=== PATIENT | female | born 1965 | race Caucasian/White ===

== ENCOUNTER 2018-10-14 11:00 | Emergency (ER) | payer MEDICAID ==
[~2018-10-14] VITALS: Ht 167.6 cm; Wt 72.7 kg
[2018-10-14] MEDS ORDERED: ibuprofen tablet 400 MG TABLET PO ONE (11:50)
[2018-10-14] MEDS ORDERED: BUPIVAcaine 0.5% W/EPI /PF 30ml vial IJ STA (11:59)
[2018-10-14] MEDS ORDERED: IBUP-1985 PO (12:18)
[2018-10-14] MEDS ORDERED: AMOX-580 PO (12:18)
[2018-10-14 12:49] VITALS: BP 155/85
== END 2018-10-14 12:30 | disposition home or self-care (01) ==
LOC: ER 11:01
DX: K02.9 Dental caries, unspecified (principal); G89.29 Other chronic pain; F12.90 Cannabis use, unspecified, uncomplicated; Z79.2 Long term (current) use of antibiotics; Z79.899 Other long term (current) drug therapy; Z98.51 Tubal ligation status; Z98.890 Other specified postprocedural states; Z87.442 Personal history of urinary calculi; Z59.0 Homelessness
CPT/HCPCS: 99283

== ENCOUNTER 2018-10-16 19:11 | Emergency (ER) | payer MEDICAID ==
[~2018-10-16] VITALS: Ht 167.6 cm; Wt 68.8 kg
[~2018-10-16 19:11] MED LIST: AMOX-580 PO; IBUP-1985 PO
[2018-10-16 19:16] VITALS: BP 158/82
--- NOTE | 2018-10-16 19:56 | NUR ---
PATIENT WAS ABLE TO CONTACT DOG'S SEED ANALYST AND VERIFIED DOG IS UP TO DATE WITH VACCINATIONS INCLUDING RABIES.
[2018-10-16] MEDS ORDERED: TETanus/Pertussis (Acell)/Diphther VAC/PF (Tdap-Adult) 0.5ml syringe IM ONE (20:40)
[2018-10-16] MEDS ORDERED: LORazepam 0.5 MG tablet PO STA (20:40)
[2018-10-16] MEDS ORDERED: ketorolac tromethamine 15mg/ml inj. IV ONE (20:40)
[2018-10-16] MEDS ORDERED: LIDOcaine 1% w/epiNEPHrine 1:200,000 30ml vial IM ONE (20:45)
[2018-10-16] MEDS ORDERED: ACET-2119 PO (22:49)
[2018-10-16] MEDS ORDERED: IBUP-1985 PO (22:49)
[2018-10-16] MEDS ORDERED: AMOX-580 PO (22:49)
[2018-10-16] MEDS ORDERED: HYDR-3965 PO (22:50)
== END 2018-10-16 23:46 | disposition home or self-care (01) ==
LOC: ER 19:12
DX: S71.112A Laceration without foreign body, left thigh, initial encounter (principal); S01.311A Laceration without foreign body of right ear, initial encounter; S61.512A Laceration without foreign body of left wrist, initial encounter; S01.412A Laceration without foreign body of left cheek and temporomandibular area, initial encounter; G89.29 Other chronic pain; F12.90 Cannabis use, unspecified, uncomplicated; Z87.442 Personal history of urinary calculi; Z98.890 Other specified postprocedural states; Z98.51 Tubal ligation status; Z59.0 Homelessness; Z79.899 Other long term (current) drug therapy; W54.0XXA Bitten by dog, initial encounter; Y93.89 Activity, other specified; Y92.89 Other specified places as the place of occurrence of the external cause; Y99.8 Other external cause status
CPT/HCPCS: 12001; 12011; 90471; 90715; 96374; 99284; J1885; J3490

== ENCOUNTER 2019-03-14 13:02 | Emergency (ER) | payer MEDICAID ==
[~2019-03-14] VITALS: Ht 167.6 cm; Wt 77.6 kg
[~2019-03-14 13:02] MED LIST changes: -AMOX-580 PO
[2019-03-14] MEDS ORDERED: NITR100C6 PO (14:14)
[2019-03-14 14:24] LABS: CLARITY,URINE SLIGHTLY CLOUDY (Clear); COLOR,URINE STRAW (Yellow); GLUCOSE, URINE NEGATIVE (Neg); KETONES,URINE NEGATIVE (Neg); LEUKOCYTE ESTERASE ,URINE SMALL (Neg); NITRITES, URINE NEGATIVE (Neg); OCCULT BLOOD,URINE NEGATIVE (Neg); PH,URINE 5.5 (4.8-8.0); PROTEIN,URINE NEGATIVE (Neg); UA COLLECTION TYPE CLN CATCH MIDSTREAM; UROBILINOGEN,URINE 0.2 E.U/dL (0.2-1.0)
[2019-03-14 14:31] LABS: BACTERIA,URINE 1+ /HPF (Neg); RBC,URINE 0-2 /HPF (0-2); SQUAMOUS EPITHELIAL CELL,UR MODERATE /LPF (FEW)
[2019-03-14] MEDS ORDERED: PHEN-716 PO (14:40)
[2019-03-14 14:41] VITALS: BP 108/77
== END 2019-03-14 14:44 | disposition home or self-care (01) ==
LOC: ER 13:03
DX: N39.0 Urinary tract infection, site not specified (principal); F31.9 Bipolar disorder, unspecified; G89.29 Other chronic pain; F12.90 Cannabis use, unspecified, uncomplicated; Z87.442 Personal history of urinary calculi; Z98.51 Tubal ligation status; Z98.890 Other specified postprocedural states; Z59.0 Homelessness; Z79.899 Other long term (current) drug therapy
CPT/HCPCS: 81001; 87088; 99283

== ENCOUNTER 2020-01-28 14:29 | Emergency (ER) | payer MEDICAID ==
[~2020-01-28] VITALS: Ht 167.6 cm; Wt 68.4 kg
[~2020-01-28 14:29] MED LIST changes: +NITR100C6 PO; +PHEN-716 PO
[2020-01-28] MEDS ORDERED: AMOX-422 PO (16:08)
[2020-01-28] MEDS ORDERED: IBUP-1984 PO (16:08)
[2020-01-28 16:25] VITALS: BP 131/75
== END 2020-01-28 16:30 | disposition home or self-care (01) ==
LOC: ER 14:30
DX: J01.90 Acute sinusitis, unspecified (principal); G89.29 Other chronic pain; F31.9 Bipolar disorder, unspecified; F12.90 Cannabis use, unspecified, uncomplicated; Z98.51 Tubal ligation status; Z98.890 Other specified postprocedural states; Z59.0 Homelessness; Z79.2 Long term (current) use of antibiotics; Z79.899 Other long term (current) drug therapy
CPT/HCPCS: 99283

== ENCOUNTER 2021-03-13 19:56 | Emergency (ER) | payer MEDICAID ==
[~2021-03-13] VITALS: Ht 167.6 cm; Wt 68.0 kg
[2021-03-13 20:29] LABS: BASOPHILS % (AUTO) 0.5 % (0-1); EOSINOPHILS # (AUTO) 0.1 X10'3 (0-0.9); EOSINOPHILS % (AUTO) 1.1 % (0-6); HEMATOCRIT 39.5 % (35.0-45.0); HEMOGLOBIN 13.4 g/dl (12.0-16.0); LYMPHOCYTES # (AUTO) 0.8 X10'3 (1.1-4.8); LYMPHOCYTES % (AUTO) 13.9 % (21-51); MEAN CORPUSCULAR HEMOGLOBIN 30.1 PG (27.0-31.0); MEAN CORPUSCULAR HGB CONC 33.9 g/dL (33.0-36.5); MEAN CORPUSCULAR VOLUME 88.7 FL (78-98); MEAN PLATELET VOLUME 7.6 FL (7.4-10.4); MONOCYTES # (AUTO) 0.7 X10'3 (0-0.9); MONOCYTES % (AUTO) 11.9 % (2-12); NEUTROPHILS # (AUTO) 4.2 X10'3 (1.8-7.7); NEUTROPHILS % (AUTO) 72.6 % (42-75); PLATELET COUNT 243 X10'3 (140-440); RED BLOOD COUNT 4.45 X10'6 (4.20-5.60); RED CELL DISTRIBUTION WIDTH 12.5 % (11.5-14.5); WHITE BLOOD COUNT 5.8 X10'3 (4.5-11.0)
[2021-03-13 20:45] LABS: ALANINE AMINOTRANSFERASE 35 U/L (12-78); ALBUMIN/GLOBULIN RATIO 0.9 (1.1-1.5); ALKALINE PHOSPHATASE 110 IU/L (46-116); ANION GAP 10 (8-16); ASPARTATE AMINO TRANSFERASE 24 U/L (10-37); BILIRUBIN,TOTAL 0.5 MG/DL (0.1-1.0); BLOOD UREA NITROGEN 10 MG/DL (7-18); BUN/CREATININE RATIO 13.7 (6.6-38.0); CALCIUM 8.3 MG/DL (8.5-10.1); CHLORIDE 102 MMOL/L (99-107); CREATININE 0.73 MG/DL (0.40-0.90); GLUCOSE 105 MG/DL (70-104); SODIUM 138 MMOL/L (135-145); TOTAL CARBON DIOXIDE 26.2 MMOL/L (24-32); TOTAL PROTEIN 6.5 G/DL (6.4-8.2); eGFR 83 ML/MIN
[2021-03-13 21:13] LABS: D-DIMER 0.25 MG/L FEU (0-0.50)
[2021-03-13 22:14] VITALS: BP 133/82
== END 2021-03-13 22:16 | disposition home or self-care (01) ==
LOC: ER 19:57
DX: U07.1 COVID-19 (principal); F31.9 Bipolar disorder, unspecified; G89.29 Other chronic pain; M54.9 Dorsalgia, unspecified; Z59.00 Homelessness unspecified
CPT/HCPCS: 36415; 71045; 80053; 83880; 84145; 84484; 85025; 85379; 86140; 87635; 93005; 99285; C9803

== ENCOUNTER 2021-03-19 01:58 | Emergency (ER) | payer MEDICAID ==
[~2021-03-19] VITALS: Ht 167.6 cm; Wt 63.6 kg
[2021-03-19 02:04] VITALS: BP 102/66
[2021-03-19] MEDS ORDERED: acetaminophen 325mg tablet PO ONE (03:00)
--- NOTE | 2021-03-19 03:05 | NUR ---
Patient diagnosed with COVID on 03/12, she is complaining of body aches. I gave her Tylenol 360mg PO per protocol
== END 2021-03-19 04:25 | disposition home or self-care (01) ==
LOC: ER 01:59
DX: U07.1 COVID-19 (principal); E86.0 Dehydration; G89.29 Other chronic pain; F31.9 Bipolar disorder, unspecified; F12.90 Cannabis use, unspecified, uncomplicated; Z87.442 Personal history of urinary calculi; Z87.440 Personal history of urinary (tract) infections; Z98.51 Tubal ligation status; Z98.890 Other specified postprocedural states; Z59.00 Homelessness unspecified; Z79.899 Other long term (current) drug therapy
CPT/HCPCS: 99283

== ENCOUNTER 2021-05-24 10:54 | Emergency (ER) | payer MEDICAID ==
[2021-05-24 10:57] VITALS: BP 113/78
[2021-05-24 12:16] LABS: CLARITY,URINE CLOUDY (Clear); COLOR,URINE BROWN (Yellow); GLUCOSE, URINE NEGATIVE (Neg); KETONES,URINE TRACE mg/dl (Neg); LEUKOCYTE ESTERASE ,URINE SMALL (Neg); NITRITES, URINE POSITIVE (Neg); OCCULT BLOOD,URINE LARGE (Neg); PROTEIN,URINE 100 mg/dl (Neg)
[2021-05-24 12:25] LABS: UA COLLECTION TYPE CLN CATCH MIDSTREAM
[2021-05-24 12:27] LABS: BACTERIA,URINE FEW /HPF (Neg); MUCUS STRANDS FEW /LPF (Neg); RBC,URINE TNTC /HPF (0-2); SQUAMOUS EPITHELIAL CELL,UR MODERATE /LPF (FEW); WBC,URINE 50-100 /HPF (0-4)
[2021-05-24] MEDS ORDERED: cephalexin 500mg capsule PO ONE (12:30)
[2021-05-24] MEDS ORDERED: CEPH-585 PO (12:32)
[2021-05-24] MEDS ORDERED: PHEN-824 PO (12:42)
[2021-05-24] MEDS ORDERED: phenazopyridine 100mg tablet PO ONE (12:45)
== END 2021-05-24 12:52 | disposition home or self-care (01) ==
LOC: ER 10:54
DX: N39.0 Urinary tract infection, site not specified (principal); R11.0 Nausea; M54.50 Low back pain, unspecified; R31.9 Hematuria, unspecified; R30.0 Dysuria; G89.29 Other chronic pain; F31.9 Bipolar disorder, unspecified; F12.90 Cannabis use, unspecified, uncomplicated; Z87.442 Personal history of urinary calculi; Z87.440 Personal history of urinary (tract) infections; Z98.51 Tubal ligation status; Z98.890 Other specified postprocedural states; Z59.00 Homelessness unspecified; Z79.2 Long term (current) use of antibiotics; Z79.899 Other long term (current) drug therapy
CPT/HCPCS: 81001; 87088; 99283